=== PATIENT | female | born 2000 | race Caucasian/White ===

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

== ENCOUNTER 2023-01-04 07:00 | Emergency (ER) | payer OTHER, BC ==
[~2023-01-04] VITALS: Ht 165.1 cm; Wt 82.0 kg
[2023-01-04 07:15] VITALS: BP 105/58
[2023-01-04 07:30] VITALS: BP 103/53
[2023-01-04 07:40] VITALS: BP 105/63
[2023-01-04 08:00] VITALS: BP 105/72
[2023-01-04 08:20] VITALS: BP 109/84
[2023-01-04] MEDS ORDERED: METHOCARBAMOL500 MG PO (11:08)
[2023-01-04] MEDS ORDERED: MELOXICAM7.5 MG PO (11:08)
[2023-01-04 11:15] VITALS: BP 105/72
== END 2023-01-04 11:21 | disposition home or self-care (01) | DRG 204 ==
LOC: ED 07:00
DX: R07.1 Chest pain on breathing (principal); M25.561 Pain in right knee; V43.52XA Car driver injured in collision with other type car in traffic accident, initial encounter; W22.11XA Striking against or struck by driver side automobile airbag, initial encounter